=== PATIENT | female | born 1940 ===

== ENCOUNTER 2017-01-22 06:44 | Day surgery (SDC) | payer MEDICARE ==
[2017-01-22] MEDS ORDERED: Propofol 10 mg/ml Inj (20 ML) ONE ×2 (09:13→09:40)
[2017-01-22] MEDS ORDERED: Etomidate 20 mg/10ml Inj IV ONE (09:13)
--- NOTE | 2017-01-22 09:17 | CP.SDSHP ---
Same Day Surgery H & P - History Proposed Procedure: EGD, Colonoscopy Pre-Op Diagnosis: Mcintyre's esophagus, change in bowel habits - Previous Medical/Surgical History Cardiac: Hypertension Endocrine/Metabolic: Diabetes Comments: Hyperlipidemia Previous Surgical History: Hysterectomy - Allergies Allergies: Allergies No Known Allergies Allergy (Verified 03/06/16 11:46) - Current Medications Current Medications: See reconciliation sheet - Physical Exam General Appearance: WD WN female in NAD Vital Signs: Vital Signs 01/22/17 07:20 Temperature 97.7 F Pulse Rate 87 Respiratory 20 Rate Blood Pressure 121/69 O2 Sat by Pulse 98 Oximetry Mental Status: Alert & Oriented x3 Neuro: WNL Heart: WNL Lungs: WNL GI: WNL - {Optional Preform as Required} Abdomen: WNL - Impression Impression: Mcintyre's esophagus, change in bowel habits Pt. Evaluated Today:Candidate for Anesthesia & Procedure: Yes - Date & Time Date: 01/22/17 Time: 09:18 Short Stay Discharge - Short Stay Discharge Admitting Diagnosis/Reason for Visit: GASTRO REFLUX Disposition: HOME/ ROUTINE
[2017-01-22 09:20] VITALS: BMI 35.6
[2017-01-22 10:19] VITALS: TEMP 97.1
[2017-01-22 10:38] VITALS: O2SAT 100
[2017-01-22 10:40] VITALS: BP 132/74; PULSE 85; RESP 19
== END 2017-01-22 11:04 | disposition home or self-care (01) ==
LOC: EDBD → C.ENDO 06:44 → MERGE 09:15 → C.ENDO 11:04
PROVIDERS: ATTEND Internal Medicine Gastroenterology
DX: K29.50 Unspecified chronic gastritis without bleeding (principal); K44.9 Diaphragmatic hernia without obstruction or gangrene; I10 Essential (primary) hypertension; K57.90 Diverticulosis of intestine, part unspecified, without perforation or abscess without bleeding; K64.8 Other hemorrhoids
CPT/HCPCS: 43239; 45378; 82948; 88305; J2001; J2405; J2704